=== PATIENT | male | born 1995 | race African-American/Black ===

== ENCOUNTER 2023-01-23 04:56 | Emergency (ER) | payer SELFPAY | END 2023-01-23 05:13 | disposition home or self-care (01) | LOC: CSHERS 04:56 | DX: R22.30 Localized swelling, mass and lump, unspecified upper limb (principal) | CPT/HCPCS: 99283 ==

== ENCOUNTER 2024-05-26 12:05 | Emergency (ER) | payer SELFPAY ==
[2024-05-26 14:51] LABS: Bilirubin Neg (Negative); Blood, Urine 25 (Negative); Clarity Clear (Clear); Glucose, Urine (Dipstick) >=1000 mg/dL (Negative); Ketone, Urine 150 mg/dL (Negative); Leukocyte Negative (Negative); Nitrite Negative (Negative); Protein, Urine (Dipstick) 30 mg/dl (Neg-Trace); Specific Gravity, Urine 1.015 (1.005-1.030); Urobilinogen Normal mg/dL (Less than 2)
[2024-05-26 15:01] LABS: Actual Bicarbonate (HCO3v) 15.7 mEq/L (22-28); Analyzer IN Cardio CS ER; Base Excess -10.6 mEq/L (-2 - +2); Chloride (VBG) 90 mmol/L (98-106); Hematocrit-VBG 51 % (42.0-52.0); Hemoglobin (Hb) 17.2 g/dL (13.2-17.3); Potassium (VBG) 5.82 mmol/L (3.70-5.30); Puncture Site Other Site; RapidComm Collect By NURSE; Sodium 134 mmol/L (133-146)
[2024-05-26 15:18] LABS: #Basophils 0.03 10x3/uL (0.0-0.2); #Monocytes 1.44 10x3/uL (0.0-1.1); #Neutrophils 8.44 10x3/uL (1.5-8.4); %Basophils 0.2 % (0.0-2.0); %Lymphocytes 18.1 % (18.0-47.0); %Monocytes 11.8 % (0.0-10.0); %Neutrophils 69.4 % (40.0-75.0); Hematocrit 51.2 % (38.8-50.0); Hemoglobin 16.1 g/dL (13.5-17.5); Mean Corpuscular HGB CONC 31.4 g/dL (32.0-36.0); Mean Corpuscular Hemoglobin 23.3 pg (27.0-33.0); Mean Corpuscular Volume 74.1 fL (81.2-95.1); Mean Platelet Volume 10.1 fL (7.4-10.4); Platelet Count 412 10x3/uL (150-450); RBC Distribution Width 14.6 % (11.5-14.5); Red Blood Cell (RBC) Count 6.91 10x6/uL (4.32-5.72); White Blood Cell (WBC) Count 12.2 10x3/uL (3.5-10.5)
[2024-05-26 15:35] LABS: ALT (SGPT) 55 U/L (8-55); AST (SGOT) 28 U/L (5-34); Albumin 5.2 g/dL (3.5-5.0); Alkaline Phosphatase 139 U/L (40-110); Anion Gap 30 mmol/L (10-20); BUN (Urea Nitrogen) 24 mg/dL (8.9-20.6); Bilirubin, Total 0.8 mg/dL (0.2-1.2); Calc. Creatinine Clearance 0 mL/min (70-130); Calcium 11.5 mg/dL (7.8-10.44); Carbon Dioxide 15 mmol/L (22-29); Chloride 89 mmol/L (98-107); Estimated GFR 44; Globulin 5.5 g/dL (2.4-3.5); Lipase 14 U/L (8-78); Magnesium 2.7 mg/dL (1.6-2.6); Potassium 5.5 mmol/L (3.5-5.1); Protein, Total 10.7 g/dL (6.0-8.3); Sodium 128 mmol/L (136-145)
[2024-05-26 15:37] LABS: Bacteria/HPF Rare-Few HPF (None Seen); CAUTI Indications for Culture Dysuria,urgency,freq; RBC/HPF 0-3 HPF (0-3); Squamous Epithelial 0-3 HPF (0-3); WBC/HPF 0-3 HPF (0-3)
[2024-05-26 15:38] LABS: Urine Culture Reflex No No
[2024-05-26 15:41] LABS: Troponin I Less than 0.010 ng/mL (< 0.028)
[2024-05-26 15:45] LABS: Glucose 781 mg/dL (70-105)
[2024-05-26 16:05] LABS: Giant Platelets SLIGHT HPF (0-5); Microcytosis MODERATE=15-30 cells (100X) (0-5/hpf); Stomatocytes SLIGHT = 2-5 cells (100X) (0-1/hpf)
[2024-05-26 16:06] LABS: Platelet Adequacy Comment Appears Adequate
[2024-05-26] MEDS ORDERED: Vancomycin 1 GM VIAL ONE (16:35)
[2024-05-26] MEDS ORDERED: INSULIN REGULAR IN 0.9 % NACL 100 ML ONE (16:36)
[2024-05-26] MEDS ORDERED: Cefepime 2 GM VIAL ONE (16:36)
[2024-05-26] MEDS ORDERED: NS 0.9% w/ 20 MEQ KCL 1,000 ML ONE ×2 (18:55→21:15)
[2024-05-26 21:12] LABS: Anion Gap 22 mmol/L (10-20); BUN (Urea Nitrogen) 20 mg/dL (8.9-20.6); Calc. Creatinine Clearance 0 mL/min (70-130); Calcium 9.9 mg/dL (7.8-10.44); Carbon Dioxide 14 mmol/L (22-29); Chloride 105 mmol/L (98-107); Estimated GFR 59; Potassium 5.2 mmol/L (3.5-5.1); Sodium 136 mmol/L (136-145)
[2024-05-26 21:33] LABS: Critical Call Chemistry ERS.AC4@2128/JG2/WITHREADBACK; Glucose 487 mg/dL (70-105)
== END 2024-05-27 00:32 | disposition short-term general hospital (02) ==
LOC: CSHERS 12:05
DX: E11.10 Type 2 diabetes mellitus with ketoacidosis without coma (principal); N17.9 Acute kidney failure, unspecified; E86.0 Dehydration
CPT/HCPCS: 36415; 36416; 71045; 80053; 81001; 82010; 82805; 83605; 83690; 83735; 84484; 85025; 87040; 93005; 93010; 96361; 96365; 96367; 96375; J0692; J1815; J3370; J3480